=== PATIENT | female | born 1995 | race Caucasian/White ===

== ENCOUNTER 2025-09-26 18:57 | Emergency (ER) | payer SELFPAY ==
[2025-09-26] MEDS ORDERED: MIRT1TAB PO (19:34)
[2025-09-26] MEDS ORDERED: PRENTAB9 PO (19:34)
[2025-09-26] MEDS ORDERED: ASPI81TA26 PO (19:34)
== END 2025-09-26 19:00 | disposition admitted as inpatient to this hospital (09) ==
LOC: M ED 18:57
DX: Z53.21 Procedure and treatment not carried out due to patient leaving prior to being seen by health care provider (principal)

== ENCOUNTER 2025-09-26 19:07 | Outpatient (CLI) ==
[~2025-09-26] VITALS: Ht 162.6 cm; Wt 76.3 kg
[2025-09-26 19:26] VITALS: BP 112/64
[2025-09-26] MEDS ORDERED: ASPI81TA26 PO (19:34)
[2025-09-26] MEDS ORDERED: MIRT1TAB PO (19:34)
[2025-09-26] MEDS ORDERED: PRENTAB9 PO (19:34)
[2025-09-26] MEDS ORDERED: HOME MED LIST COMPLETE! XX SCH (19:35)
== END 2025-09-26 20:43 | disposition home or self-care (01) ==
LOC: M LDO 19:07
PROVIDERS: ATTEND Advanced Practice Midwife
DX: O26.892 Other specified pregnancy related conditions, second trimester (principal); O09.212 Supervision of pregnancy with history of pre-term labor, second trimester; R10.11 Right upper quadrant pain; R10.20 Pelvic and perineal pain unspecified side; Z87.59 Personal history of other complications of pregnancy, childbirth and the puerperium; Z79.82 Long term (current) use of aspirin; Z3A.23 23 weeks gestation of pregnancy
CPT/HCPCS: 59025; G0463